=== PATIENT | female | born 1980 | race African-American/Black ===

== ENCOUNTER 2018-10-26 18:50 | Emergency (ER) | payer BC ==
[2018-10-26 19:58] LABS: #Eosinphils 0.2 thou/uL (0.0-0.7); #Lymphocytes 2.3 thou/uL (1.20-3.40); #Monocytes 0.7 thou/uL (0.11-0.59); #Neutrophils 3.9 thou/uL (1.40-6.50); %Basophils 0.6 % (0.0-1.0); %Eosinophils 2.4 % (0.0-10.0); %Lymphocytes 32.6 % (21.0-51.0); %Monocytes 9.4 % (0.0-10.0); Hemoglobin 12.6 g/dL (12.0-16.0); Mean Corpuscular HGB CONC 34.6 g/dL (32.0-36.0); Mean Corpuscular Hemoglobin 27.9 pg (27.0-31.0); Mean Corpuscular Volume 80.4 fL (78.0-98.0); Mean Platelet Volume 7.3 fL (7.4-10.4); Platelet Count 336 thou/uL (130-400); Red Blood Cell (RBC) Count 4.51 mill/uL (4.20-5.40)
[2018-10-26 20:21] LABS: ALT (SGPT) 34 U/L (8-55); AST (SGOT) 24 U/L (5-34); Albumin 3.9 g/dL (3.5-5.0); Alkaline Phosphatase 72 U/L (40-150); Anion Gap 14 mmol/L (10-20); BUN (Urea Nitrogen) 9 mg/dL (7.0-18.7); Bilirubin, Total Less than 0.2 mg/dL (0.2-1.2); Calc. Creatinine Clearance 0 mL/min (70-130); Calcium 9.7 mg/dL (7.8-10.44); Carbon Dioxide 25 mmol/L (22-29); Chloride 103 mmol/L (98-107); Estimated GFR-MDRD Greater than 90; Globulin 4.2 g/dL (2.4-3.5); Glucose 77 mg/dL (70-105); Lipase 71 U/L (8-78); Protein, Total 8.1 g/dL (6.0-8.3); Sodium 138 mmol/L (136-145)
[2018-10-26 22:58] LABS: Bilirubin Negative (Negative); Blood, Urine Negative (Negative); Clarity CLEAR (Clear); Glucose, Urine (Dipstick) Negative (Negative); Leukocyte Trace (Negative); Nitrite Negative (Negative); Protein, Urine (Dipstick) Negative (Neg-Trace); Specific Gravity, Urine 1.015 (1.002-1.036); Urobilinogen 0.2 mg/dL (0.2-1.0)
[2018-10-26 22:59] LABS: Pregnancy Test - Urine (BHCG) Negative (Negative); Pregu Control Background? CLEAR/WHITE (CLR/WHITE); Pregu Control Bar Appear? YES (CONTROL BAR); Specific Gravity 1.015 (1.002-1.036)
[2018-10-26 23:00] LABS: Bacteria/HPF None Seen HPF (None Seen); Hyaline Casts/LPF 0-3 HYALINE CAST LPF (0-3 Hyaline); Pathc Cast-AUWi Flag 0.58 (0-2.49); Squamous Epithelial 0-3 HPF (0-3); WBC/HPF 0-3 HPF (0-3)
--- NOTE | 2018-10-27 09:43 | ULT ---
PRELIMINARY REPORT/[facility]/EMERGENTY AFTER-HOURS PROCEDURE US Pelvis Complete, Transabdominal EXAM DATE/TIME: 10/27/2018 1:35 AM CLINICAL HISTORY: 38 years old, female; Pain and signs and symptoms; Constipation; Slow transit; Pelvic pain and other: RT side TECHNIQUE: Real-time transabdominal pelvic ultrasound with image documentation. Complete exam. COMPARISON: No relevant prior studies available. FINDINGS: Uterus/cervix: Uterus is retroflexed and measures 7.7 x 3.5 x 5.0 cm. Endometrium is homogeneous in e chotexture, measuring 9 mm in thickness at the uterine fundus. Right adnexa: Right ovary measures 3.0 x 3.0 x 2.1 cm. Simple right ovarian cyst measuring 11 x 8 x 7 mm. Normal right ovary vascular flow. Left adnexa: Left ovary not visualized secondary to overlying bowel gas. Free fluid: None. IMPRESSION: No sonographic evidence of acute pelvic abnormality. Thank you for allowing us to participate in the care of your patient. Dictated and Authenticated by: Baron Stuart MD 10/27/2018 2:50 AM Central Time ([place] & [place]) FINAL REPORT PELVIC ULTRASOUND: HISTORY: Right-sided pelvic pain and nausea. FINDINGS: Real-time imaging of the pelvis was obtained both transabdominally as well as with an endovaginal pro be. The uterus measures 3.5 x 5 x 7.7 cm. Endometrium is in the 8-9 mm range. The adnexa are difficult to visualize. The right ovary is fairly well imaged and shows a normal size . There is a small follicle present. The left ovary is never definitively seen. DOPPLER EVALUATION WITH SPECTRAL ANALYSIS: Normal flow is shown to the right ovary. IMPRESSION: 1. Nonvisualization of the left ovary. Unremarkable-appearing uterus and right ovary. No free flui d or other findings. 2. This report is in agreement with the temporary report issued by [facility]. POS: OFF
== END 2018-10-27 02:06 | disposition home or self-care (01) ==
LOC: ERS 18:50
DX: R10.31 Right lower quadrant pain (principal)
CPT/HCPCS: 36415; 76856; 80053; 81003; 81015; 81025; 82728; 83540; 83550; 83690; 85025

== ENCOUNTER 2018-12-03 01:44 | Inpatient (IN) | payer BC ==
[2018-12-03] MEDS ORDERED: Ondansetron PF 4 MG/2 ML Vial ONE ×2 (02:25→13:38)
[2018-12-03] MEDS ORDERED: Morphine 4 MG/ML VIAL ONE (02:25)
[2018-12-03 02:36] LABS: #Eosinphils 0.2 thou/uL (0.0-0.7); #Lymphocytes 1.7 thou/uL (1.20-3.40); #Monocytes 0.5 thou/uL (0.11-0.59); %Basophils 0.2 % (0.0-1.0); %Eosinophils 2.2 % (0.0-10.0); %Lymphocytes 20.5 % (21.0-51.0); %Monocytes 6.4 % (0.0-10.0); %Neutrophils 70.7 % (42.0-75.0); Hemoglobin 10.9 g/dL (12.0-16.0); Mean Corpuscular HGB CONC 32.3 g/dL (32.0-36.0); Mean Corpuscular Hemoglobin 26.4 pg (27.0-31.0); Mean Corpuscular Volume 81.7 fL (78.0-98.0); Mean Platelet Volume 6.9 fL (7.4-10.4); Platelet Count 330 thou/uL (130-400); RBC Distribution Width 12.5 % (11.5-14.5); Red Blood Cell (RBC) Count 4.12 mill/uL (4.20-5.40); White Blood Cell (WBC) Count 8.4 thou/uL (4.8-10.8)
[2018-12-03 02:55] LABS: ALT (SGPT) 78 U/L (8-55); AST (SGOT) 141 U/L (5-34); Albumin 3.6 g/dL (3.5-5.0); Alkaline Phosphatase 100 U/L (40-150); Anion Gap 14 mmol/L (10-20); BUN (Urea Nitrogen) 10 mg/dL (7.0-18.7); Bilirubin, Total 0.4 mg/dL (0.2-1.2); Calc. Creatinine Clearance 0 mL/min (70-130); Calcium 9.4 mg/dL (7.8-10.44); Carbon Dioxide 23 mmol/L (22-29); Chloride 104 mmol/L (98-107); Estimated GFR-MDRD Greater than 90; Globulin 3.8 g/dL (2.4-3.5); Glucose 158 mg/dL (70-105); Lipase 76 U/L (8-78); Potassium 3.9 mmol/L (3.5-5.1); Protein, Total 7.4 g/dL (6.0-8.3); Sodium 137 mmol/L (136-145)
[2018-12-03 03:48] LABS: Bilirubin Negative (Negative); Blood, Urine Negative (Negative); Clarity CLEAR (Clear); Glucose, Urine (Dipstick) Negative (Negative); Leukocyte Negative (Negative); Nitrite Negative (Negative); Protein, Urine (Dipstick) Negative (Neg-Trace); Specific Gravity, Urine 1.019 (1.002-1.036); pH, Urine 7.5 (5.0-9.0)
[2018-12-03 03:52] LABS: Pregnancy Test - Urine (BHCG) Negative (Negative); Pregu Control Background? CLEAR/WHITE (CLR/WHITE); Pregu Control Bar Appear? YES (CONTROL BAR); Specific Gravity 1.019 (1.002-1.036)
[2018-12-03] MEDS ORDERED: Ondansetron ODT 4 MG TAB SL PRN (05:40)
[2018-12-03] MEDS ORDERED: Ondansetron PF 4 MG/2 ML Vial IVP PRN (05:40)
[2018-12-03 07:44] VITALS: BMI 33.6
[2018-12-03] MEDS ORDERED: Midazolam HCl 2 mg/2 ml Vial ONE (09:11)
[2018-12-03] MEDS ORDERED: Fentanyl 100 MCG/2 ML VIAL ONE (09:11)
[2018-12-03] MEDS ORDERED: Promethazine HCl 25 MG/ML VIAL ONE (09:12)
[2018-12-03] MEDS ORDERED: Bupivacaine HCl 0.5%/Epinephrine 1:200,000/PF 30 ml Vial ONE (09:26)
--- NOTE | 2018-12-03 09:26 | ULT ---
PRELIMINARY REPORT/[facility]/EMERGENTY AFTER-HOURS PROCEDURE US Abdomen Limited, Right Upper Quadrant EXAM DATE/TIME: 12/03/2018 2:39 AM CLINICAL HISTORY: 38 years old, female; Pain; Other: Ruq pain TECHNIQUE: Real-time ultrasound of the abdomen with image documentation. Examination was focused on the right up per quadrant. COMPARISON: No relevant prior studies available. FINDINGS: Liver: No acute findings. No mass. Gallbladder: Gallstones with acoustic shadowing. Borderline gallbladder wall thickening. Common bile duct: Unremarkable. Pancreas: Visualized pancreas is unremarkable. Right kidney: No acute findings. No mass. No hydronephrosis. IMPRESSION: Cholelithiasis with borderline gallbladder wall thickening; recommend clinical correlation for cholec ystitis. Thank you for allowing us to participate in the care of your patient. Dictated and Authenticated by: Santosh Colindres MD 12/03/2018 3:22 AM Central Time ([place] & [place]) FINAL REPORT RIGHT UPPER QUADRANT ULTRASOUND: HISTORY: Right upper quadrant pain. COMPARISON: None. TECHNIQUE: Utilizing a Multihertz transducer, sonographic imaging of the right upper quadrant is performed in a longitudinal and transverse plane. FINDINGS: This report is in agreement with the preliminary report by [facility]. There is sonographic evidence of cho lelithiasis without definite sonographic evidence of cholecystitis. HIDA scan if clinically warrante d. POS: [facility]
[2018-12-03] MEDS ORDERED: Ketorolac Tromethamine 30 MG/ML VIAL ONE (09:45)
--- NOTE | 2018-12-03 10:21 | HP ---
HISTORY OF PRESENT ILLNESS: Mabel Jimenez is a 38-year-old female, works for [employer]. She has had episodes of bloating, belching, indigestion, interscapular pain, right scapular pain, and shoulder pain for many years. She developed upper abdominal pain, presented to the emergency room, found on ultrasound to have gallstones, normal bile duct caliber. Liver function tests normal. White count 8, hemoglobin 10.9. She was given Levaquin. Admitted overnight because of failure to control her pain. The patient is single, 0, para 0. ALLERGIES: NONE. TOBACCO: None. ALCOHOL: None. MEDICATIONS: Oral contraceptives. PAST SURGICAL AND MEDICAL HISTORY: Noncontributory. REVIEW OF SYSTEMS: Ten-point noncontributory. PHYSICAL EXAMINATION: VITAL SIGNS: Height 5 feet 5 inches, 202 pounds, 33 BMI, 98.2, 82, 16, and 96/66. HEAD, EARS, EYES, NOSE, AND THROAT: Unremarkable. Sclerae nonicteric. LUNGS: Clear to auscultation. CARDIAC: Regular rate and rhythm without murmur or gallop. ABDOMEN: Soft. Tenderness in right upper quadrant and guarding. EXTREMITIES: Unremarkable. SKIN: Nonjaundiced. NEUROLOGICAL: Intact. LYMPHATIC: No lymphadenopathy in neck, axilla, or groin. ASSESSMENT AND PLAN: Cholecystitis, cholelithiasis. She has received Levaquin in the emergency room. We gave her Toradol affirmatively, and we have recommended laparoscopic video cholecystectomy. Risks of infection, bleeding, visceral and biliary injury explained. She consents. We will proceed with laparoscopic cholecystectomy and expect discharge home later today. Job ID: [id number]
[2018-12-03] MEDS ORDERED: Promethazine HCl 25 MG/ML VIAL SLOW IVP PRN (10:51)
[2018-12-03] MEDS ORDERED: Promethazine HCl 25 MG/ML VIAL IM PRN (10:51)
[2018-12-03] MEDS ORDERED: Ondansetron HCl/PF 4 MG/2 ML Vial IVP PRN (10:51)
[2018-12-03] MEDS ORDERED: PACU-Morphine 4MG/ML VIAL SLOW IVP PRN (10:51)
[2018-12-03] MEDS ORDERED: HYDROmorphone 2 MG/ML VIAL SLOW IVP PRN (10:51)
[2018-12-03] MEDS ORDERED: Ibuprofen 600 MG TAB PO PRN (11:23)
[2018-12-03] MEDS ORDERED: traMADol HCl 50 MG TAB PO PRN ×2 (11:23)
[2018-12-03] MEDS ORDERED: Acetaminophen 500 MG TAB PO PRN (11:23)
--- NOTE | 2018-12-03 11:38 | OP ---
DATE OF PROCEDURE: 12/03/2018 PREOPERATIVE DIAGNOSES: 1. Cholecystitis. 2. Cholelithiasis. POSTOPERATIVE DIAGNOSES: 1. Cholecystitis. 2. Cholelithiasis. ANESTHESIA: Local anesthetic, 0.5% Marcaine with epinephrine, 30 mL total volume used. General anesthesia. PROCEDURE PERFORMED: Laparoscopic video cholecystectomy. FINDINGS: Normal liver. DESCRIPTION OF PROCEDURE: The patient was taken to the operating room, where underwent general anesthesia. Abdomen was prepared with ChloraPrep and draped in routine fashion. Local anesthetic was infiltrated in the skin and subcutaneous tissue about each port site. Infraumbilical incision was made. Pneumoperitoneum to 15 mmHg obtained with a Veress needle, replacing with a 5 port. Video laparoscope inserted. Right subxiphoid incision was made and 11 port placed. Right subcostal incision was made in the midclavicular and anterior axillary line and the 5 port placed. Liver appeared to be normal. Fundus of the gallbladder was grasped at the cephalad. Infundibulum was grasped and reflected laterally. Cystic artery and duct dissected free. Critical view obtained. Cystic artery and duct double clipped proximally and divided. Gallbladder dissected free from the liver bed, obtaining good hemostasis prior to division of the final peritoneal attachments. Gallbladder and contents and stones were removed and submitted to Pathology. Good hemostasis ensured. Irrigant and pneumoperitoneum evacuated. All instruments were removed. All skin incisions were approximated with interrupted subdermal 4-0 Monocryl and Balfour glue applied. Job ID: [id number]
[2018-12-03] MEDS ORDERED: Rocuronium Bromide 10 MG/ML (10ML VIAL) ONE (13:38)
[2018-12-03] MEDS ORDERED: PROPOFOL 200 MG/20 ML VIAL ONE (13:38)
[2018-12-03] MEDS ORDERED: Lidocaine 1% PF 5 ML VIAL ONE (13:38)
[2018-12-03] MEDS ORDERED: Glycopyrrolate 0.2 MG/ML 5 ML SYRINGE ONE (13:38)
[2018-12-03] MEDS ORDERED: Dexamethasone 20 MG/5 ML VIAL ONE (13:38)
--- NOTE | 2018-12-03 14:01 | DIS ---
DATE OF ADMISSION: 12/03/2018 DATE OF DISCHARGE: 12/03/2018 PREOPERATIVE DIAGNOSES: Cholecystitis, cholelithiasis. PROCEDURES: Ultrasound of the gallbladder in ER, laparoscopic video cholecystectomy. HISTORY: A 38-year-old female with a several-year history of biliary symptoms, became worse, presented to the emergency room. Ultrasound revealed gallstones. Bile duct caliber normal. Liver function tests normal. Hospitalized overnight due to the late hour presentation, underwent laparoscopic video cholecystectomy, and discharged home with followup in Dr. Richardson's office in 2 to 3 weeks. DIET AND ACTIVITY: As tolerated. DISCHARGE MEDICATIONS: Home with Ultram, #25, if needed. Otherwise, Tylenol, Advil [id number]. Bathe and shower whenever. No lifting restrictions. Job ID: [id number]
[2018-12-03 14:44] VITALS: BP 97/66; TEMP 98.1
[2018-12-04] MEDS ORDERED: ETHINYL ESTRADIOL PO SCH (09:00)
[2018-12-04] MEDS ORDERED: DROSPIRENONE PO SCH (09:00)
== END 2018-12-03 14:40 | disposition home or self-care (01) | DRG 419 ==
LOC: ERS 01:44 → SURG A 05:06
PROVIDERS: ADMIT Specialist; ATTEND Specialist
PROC: 0FT44ZZ Resection of Gallbladder, Percutaneous Endoscopic Approach (ICD-10-PCS; principal; 2018-12-03)
DX: K80.10 Calculus of gallbladder with chronic cholecystitis without obstruction (principal)
CPT/HCPCS: 36415; 76705; 80053; 81003; 81025; 83690; 84484; 85025; 88304; 96361; 96365; 96375; J0131; J0670; J1100; J1885; J1956; J2001; J2250; J2270; J2405; J2550; J2704; J3010

== ENCOUNTER 2020-02-07 15:59 | Emergency (ER) | payer BC ==
[~2020-02-07 15:59] MED LIST: Iopamidol-370 76% 500 ML 1 ML ONE
[2020-02-07] MEDS ORDERED: Morphine 4 MG/ML VIAL ONE ×2 (16:54→17:58)
[2020-02-07] MEDS ORDERED: Ketorolac Tromethamine 30 MG/ML VIAL ONE (16:55)
[2020-02-07] MEDS ORDERED: Ondansetron PF 4 MG/2 ML Vial ONE (16:55)
[2020-02-07 17:25] LABS: #Eosinphils 0.2 thou/uL (0.0-0.7); #Lymphocytes 2.4 thou/uL (1.20-3.40); #Monocytes 0.6 thou/uL (0.11-0.59); #Neutrophils 7.1 thou/uL (1.40-6.50); %Basophils 0.4 % (0.0-1.0); %Eosinophils 1.5 % (0.0-10.0); %Lymphocytes 23.1 % (21.0-51.0); %Monocytes 5.5 % (0.0-10.0); %Neutrophils 69.5 % (42.0-75.0); Mean Corpuscular HGB CONC 33.7 g/dL (32.0-36.0); Mean Corpuscular Hemoglobin 27.7 pg (27.0-31.0); Mean Corpuscular Volume 82.2 fL (78.0-98.0); Mean Platelet Volume 7.1 fL (7.4-10.4); Platelet Count 368 thou/uL (130-400); RBC Distribution Width 13.3 % (11.5-14.5); Red Blood Cell (RBC) Count 4.69 mill/uL (4.20-5.40); White Blood Cell (WBC) Count 10.2 thou/uL (4.8-10.8)
[2020-02-07 17:49] LABS: ALT (SGPT) 12 U/L (8-55); AST (SGOT) 13 U/L (5-34); Albumin 4.2 g/dL (3.5-5.0); Alkaline Phosphatase 95 U/L (40-110); Anion Gap 16 mmol/L (10-20); BUN (Urea Nitrogen) 10 mg/dL (7.0-18.7); Bilirubin, Total Less than 0.2 mg/dL (0.2-1.2); Calc. Creatinine Clearance 0 mL/min (70-130); Calcium 9.3 mg/dL (7.8-10.44); Carbon Dioxide 20 mmol/L (22-29); Chloride 105 mmol/L (98-107); Estimated GFR-MDRD Greater than 90; Globulin 3.9 g/dL (2.4-3.5); Glucose 130 mg/dL (70-105); Lipase 47 U/L (8-78); Potassium 3.5 mmol/L (3.5-5.1); Protein, Total 8.1 g/dL (6.0-8.3); Sodium 137 mmol/L (136-145)
[2020-02-07 17:59] LABS: BHCG - Serum Negative (NEGATIVE); Pregs Control Background? CLEAR/WHITE (CLR/WHITE); Pregs Control Bar Appear? YES (CONTROL BAR)
[2020-02-07 18:02] LABS: Bacteria/HPF None Seen HPF (None Seen); Bilirubin Negative (Negative); Blood, Urine 2+ (Negative); Clarity Clear (Clear); Glucose, Urine (Dipstick) Normal (Negative); Leukocyte Negative Leu/uL (Negative); Nitrite Negative (Negative); Protein, Urine (Dipstick) 10 mg/dL (Neg-Trace); RBC/HPF Greater than 50 HPF (0-3); Squamous Epithelial 0-3 HPF (0-3); Urobilinogen Normal mg/dL (Less than 2)
--- NOTE | 2020-02-07 18:55 | CT ---
CT ABDOMEN AND PELVIS WITH IV CONTRAST: 02/07/20 INDICATIONS; Left lower quadrant pain. No comparison. FINDINGS: The lung bases are clear. Liver, spleen, and pancreas unremarkable. Post cholecystectomy changes are noted. Adrenal glands are normal. Kidneys unremarkable. Urinary bladder is contracted and not well evaluated. Small bowel loops are normal caliber. The appendix is not identified. Colon is unremarkable. No evide nce of adenopathy. Images through the pelvis show unremarkable uterus and adnexa. IMPRESSION: No acute process identified. POS: [facility]
== END 2020-02-07 23:11 | disposition home or self-care (01) ==
LOC: ERS 15:59
DX: M54.42 Lumbago with sciatica, left side (principal); R10.31 Right lower quadrant pain; Z79.899 Other long term (current) drug therapy; Z79.84 Long term (current) use of oral hypoglycemic drugs
CPT/HCPCS: 74177; 80053; 81003; 81015; 83690; 84703; 85025; 96361; 96374; 96375; J1885; J2270; J2405; Q9967

== ENCOUNTER 2021-03-12 08:11 | Outpatient (CLI) | payer BC ==
[2021-03-12 08:51] LABS: Estimated GFR-MDRD - POC Greater than 90
[2021-03-12] MEDS ORDERED: Magnevist 469MG/ML 20 ML VIAL ONE (09:08)
== END 2021-03-12 08:12 | disposition home or self-care (01) ==
LOC: BICMRI 08:11
PROVIDERS: ATTEND Family Medicine
DX: H53.9 Unspecified visual disturbance (principal); R51.9 Headache, unspecified
CPT/HCPCS: 70553; 82565; A9579

== ENCOUNTER 2021-09-08 13:15 | Outpatient (CLI) | payer BC | END 2021-09-08 13:16 | disposition home or self-care (01) | LOC: BICCT 13:15 | PROVIDERS: ATTEND Family Medicine | DX: R10.9 Unspecified abdominal pain (principal) | CPT/HCPCS: 74178 ==

== ENCOUNTER 2021-11-06 14:39 | Outpatient (CLI) | payer BC | END 2021-11-06 14:40 | disposition home or self-care (01) | LOC: SCSRAD 14:39 | PROVIDERS: ATTEND Family Medicine | DX: R06.02 Shortness of breath (principal) | CPT/HCPCS: 71046 ==

== ENCOUNTER 2021-11-08 18:52 | Inpatient (IN) | payer BC ==
[~2021-11-08 18:52] MED LIST changes: +Iopamidol 370 76% 100 ML VIAL ONE; -Iopamidol-370 76% 500 ML 1 ML ONE
[2021-11-08 19:44] LABS: #Lymphocytes 1.3 thou/uL (1.20-3.40); #Monocytes 0.6 thou/uL (0.11-0.59); #Neutrophils 5.3 thou/uL (1.40-6.50); %Eosinophils 0.1 % (0.0-10.0); %Lymphocytes 18.3 % (21.0-51.0); %Monocytes 8.2 % (0.0-10.0); %Neutrophils 73.3 % (42.0-75.0); Hemoglobin 10.6 g/dL (12.0-16.0); Mean Corpuscular HGB CONC 31.9 g/dL (32.0-36.0); Mean Corpuscular Hemoglobin 23.9 pg (27.0-31.0); Mean Corpuscular Volume 75.1 fL (78.0-98.0); Mean Platelet Volume 6.9 fL (7.4-10.4); Platelet Count 309 thou/uL (130-400); RBC Distribution Width 15.1 % (11.5-14.5); Red Blood Cell (RBC) Count 4.43 mill/uL (4.20-5.40); White Blood Cell (WBC) Count 7.3 thou/uL (4.8-10.8)
[2021-11-08 20:04] LABS: ALT (SGPT) 26 U/L (8-55); AST (SGOT) 31 U/L (5-34); Albumin 3.4 g/dL (3.5-5.0); Alkaline Phosphatase 63 U/L (40-110); Anion Gap 17 mmol/L (10-20); BUN (Urea Nitrogen) 4 mg/dL (7.0-18.7); Bilirubin, Total 0.3 mg/dL (0.2-1.2); Calc. Creatinine Clearance 0 mL/min (70-130); Carbon Dioxide 22 mmol/L (22-29); Globulin 3.5 g/dL (2.4-3.5); Glucose 170 mg/dL (70-105); Potassium 3.4 mmol/L (3.5-5.1); Protein, Total 6.9 g/dL (6.0-8.3)
[2021-11-08 20:09] LABS: Chloride 100 mmol/L (98-107); Sodium 136 mmol/L (136-145)
[2021-11-08] MEDS ORDERED: Ondansetron PF 4 MG/2 ML Vial ONE (20:57)
[2021-11-08] MEDS ORDERED: Acetaminophen 500 MG TAB ONE (20:57)
[2021-11-08] MEDS ORDERED: Dexamethasone 10 MG/ML VIAL ONE (20:57)
[2021-11-08] MEDS ORDERED: Enoxaparin Sodium 100 MG/ML SYRINGE ONE (22:37)
[2021-11-08] MEDS ORDERED: Sodium Chloride 0.9% 1,000 ML IV SCH (22:45)
[2021-11-08 23:00] LABS: Lactic Acid 1.2 mmol/L (0.5-2.2)
[2021-11-09] MEDS ORDERED: Electrolyte Replacement Protocol 1 EACH FS PRN (00:30)
[2021-11-09] MEDS: Potassium Chloride 20 MEQ in Premix Bag 1 BAG IVPB SCH ×2 (00:47→03:16)
[2021-11-09 01:07] VITALS: BMI 39.4
[2021-11-09] MEDS ORDERED: Ondansetron PF 4 MG/2 ML Vial IVP PRN (04:49)
[2021-11-09] MEDS ORDERED: Acetaminophen 650 MG Suppository PR PRN (04:49)
[2021-11-09] MEDS ORDERED: Ondansetron ODT 4 MG TAB PO PRN (04:49)
[2021-11-09] MEDS ORDERED: Enoxaparin Sodium 40 MG/0.4 ML SYRINGE SC SCH (05:00)
[2021-11-09 05:39] LABS: Hemoglobin 10.4 g/dL (12.0-16.0); Mean Corpuscular Hemoglobin 23.9 pg (27.0-31.0); Mean Corpuscular Volume 74.5 fL (78.0-98.0); Mean Platelet Volume 7.1 fL (7.4-10.4); Platelet Count 298 thou/uL (130-400); RBC Distribution Width 15.1 % (11.5-14.5); Red Blood Cell (RBC) Count 4.35 mill/uL (4.20-5.40); White Blood Cell (WBC) Count 4.8 thou/uL (4.8-10.8)
[2021-11-09 05:51] LABS: Anion Gap 12 mmol/L (10-20); BUN (Urea Nitrogen) 5 mg/dL (7.0-18.7); Calc. Creatinine Clearance 177 mL/min (70-130); Calcium 8.1 mg/dL (7.8-10.44); Carbon Dioxide 22 mmol/L (22-29); Chloride 106 mmol/L (98-107); Glucose 252 mg/dL (70-105); Potassium 4.2 mmol/L (3.5-5.1); Sodium 136 mmol/L (136-145)
[2021-11-09] MEDS ORDERED: Dextrose 50% Abboject 50 ML SYRINGE SLOW IVP PRN (05:52)
[2021-11-09] MEDS ORDERED: Dextrose 5% in Water 1,000 ML IV PRN (05:52)
[2021-11-09 06:20] LABS: #Lymphocytes 0.7 thou/uL (1.20-3.40); #Monocytes 0.2 thou/uL (0.11-0.59); #Neutrophils 3.8 thou/uL (1.40-6.50); %Eosinophils 0.1 % (0.0-10.0); %Lymphocytes 15.5 % (21.0-51.0); %Monocytes 4.4 % (0.0-10.0)
[2021-11-09 06:21] LABS: MDiff Complete? YES; Microcytosis SLIGHT = 6-15 cells (100X) (0-5/hpf)
[2021-11-09] MEDS: Albuterol 200 PUFF (6.7GM INHALER) INH SCH ×3 (06:44→20:27)
[2021-11-09] MEDS: HumaLOG 300 UNITS/3 ML VIAL SC PRN ×3 (06:45→20:28)
[2021-11-09] MEDS: Ascorbic Acid 500 mg Chewable Tablet PO SCH (07:45)
[2021-11-09] MEDS: Cholecalciferol (Vitamin D3) 400 UNITS TAB PO SCH (07:46)
[2021-11-09] MEDS: Zinc Sulfate 220 MG CAP PO SCH (07:46)
[2021-11-09] MEDS: Dexamethasone 10 MG/ML VIAL SLOW IVP SCH (07:46)
[2021-11-09] MEDS ORDERED: Iopamidol 370 76% 100 ML VIAL ONE (09:31)
[2021-11-09] MEDS ORDERED: Pharmacy to Dose REMDESIVIR IVPB PRN (15:52)
[2021-11-09] MEDS: guaiFENesin/Codeine 200 mg/20 mg 10 ml Cup PO PRN (20:27)
[2021-11-09] MEDS: Enoxaparin Sodium 40 MG/0.4 ML SYRINGE SC SCH (20:27)
[2021-11-09] MEDS: Acetaminophen 325 MG TAB PO PRN (23:35)
[2021-11-09] MEDS ORDERED: Nitroglycerin 0.4 MG TAB (25 Tab Bottle) SL PRN (23:39)
[2021-11-09] MEDS ORDERED: Nitroglycerin 0.4 MG TAB (25 Tab Bottle) ONE (23:44)
[2021-11-10 00:21] LABS: Troponin I Less than 0.010 ng/mL (< 0.028)
[2021-11-10 01:04] LABS: Magnesium 2.1 mg/dL (1.6-2.6)
[2021-11-10] MEDS: Albuterol 200 PUFF (6.7GM INHALER) INH SCH ×4 (01:17→18:10)
[2021-11-10 05:29] LABS: #Basophils 0.3 thou/uL (0.0-0.2); #Monocytes 0.6 thou/uL (0.11-0.59); #Neutrophils 9.5 thou/uL (1.40-6.50); %Basophils 2.5 % (0.0-1.0); %Eosinophils 0.1 % (0.0-10.0); %Lymphocytes 8.4 % (21.0-51.0); %Monocytes 5.4 % (0.0-10.0); %Neutrophils 83.5 % (42.0-75.0); Hemoglobin 9.6 g/dL (12.0-16.0); Mean Corpuscular HGB CONC 32.4 g/dL (32.0-36.0); Mean Corpuscular Hemoglobin 24.3 pg (27.0-31.0); Mean Corpuscular Volume 74.9 fL (78.0-98.0); Platelet Count 354 thou/uL (130-400); Red Blood Cell (RBC) Count 3.97 mill/uL (4.20-5.40); White Blood Cell (WBC) Count 11.4 thou/uL (4.8-10.8)
[2021-11-10 05:53] LABS: Anion Gap 15 mmol/L (10-20); BUN (Urea Nitrogen) 7 mg/dL (7.0-18.7); Calc. Creatinine Clearance 185 mL/min (70-130); Calcium 8.4 mg/dL (7.8-10.44); Carbon Dioxide 22 mmol/L (22-29); Chloride 107 mmol/L (98-107); Glucose 217 mg/dL (70-105); Potassium 3.8 mmol/L (3.5-5.1); Sodium 140 mmol/L (136-145)
[2021-11-10] MEDS: Cholecalciferol (Vitamin D3) 400 UNITS TAB PO SCH (09:27)
[2021-11-10] MEDS: Ascorbic Acid 500 mg Chewable Tablet PO SCH (09:27)
[2021-11-10] MEDS: Zinc Sulfate 220 MG CAP PO SCH (09:27)
[2021-11-10] MEDS: Enoxaparin Sodium 40 MG/0.4 ML SYRINGE SC SCH ×2 (09:27→20:49)
[2021-11-10] MEDS: Dexamethasone 10 MG/ML VIAL SLOW IVP SCH (09:27)
[2021-11-10] MEDS: guaiFENesin/Codeine 200 mg/20 mg 10 ml Cup PO PRN ×2 (09:36→20:49)
[2021-11-10] MEDS: HumaLOG 300 UNITS/3 ML VIAL SC PRN ×3 (12:39→20:49)
[2021-11-10] MEDS: Acetaminophen 325 MG TAB PO PRN ×2 (13:32→20:49)
[2021-11-10] MEDS ORDERED: Morphine 4 MG/ML VIAL SLOW IVP PRN (16:22)
[2021-11-11] MEDS: Albuterol 200 PUFF (6.7GM INHALER) INH SCH ×3 (01:45→13:33)
[2021-11-11 05:36] LABS: #Basophils 0.1 thou/uL (0.0-0.2); #Lymphocytes 1.2 thou/uL (1.20-3.40); #Monocytes 0.7 thou/uL (0.11-0.59); #Neutrophils 10.4 thou/uL (1.40-6.50); %Basophils 0.6 % (0.0-1.0); %Lymphocytes 9.9 % (21.0-51.0); %Monocytes 5.8 % (0.0-10.0); %Neutrophils 83.6 % (42.0-75.0); Hemoglobin 9.5 g/dL (12.0-16.0); Mean Corpuscular HGB CONC 31.9 g/dL (32.0-36.0); Mean Corpuscular Hemoglobin 23.9 pg (27.0-31.0); Mean Corpuscular Volume 74.9 fL (78.0-98.0); Mean Platelet Volume 6.7 fL (7.4-10.4); Platelet Count 430 thou/uL (130-400); RBC Distribution Width 14.9 % (11.5-14.5); Red Blood Cell (RBC) Count 3.98 mill/uL (4.20-5.40); White Blood Cell (WBC) Count 12.5 thou/uL (4.8-10.8)
[2021-11-11 05:55] LABS: Anion Gap 14 mmol/L (10-20); BUN (Urea Nitrogen) 9 mg/dL (7.0-18.7); Calc. Creatinine Clearance 197 mL/min (70-130); Calcium 8.3 mg/dL (7.8-10.44); Carbon Dioxide 24 mmol/L (22-29); Chloride 104 mmol/L (98-107); Glucose 170 mg/dL (70-105); Sodium 138 mmol/L (136-145)
[2021-11-11] MEDS: HumaLOG 300 UNITS/3 ML VIAL SC PRN (06:24)
[2021-11-11] MEDS ORDERED: Lactated Ringer's 500 ML IV SCH (08:15)
[2021-11-11] MEDS: Dexamethasone 10 MG/ML VIAL SLOW IVP SCH (09:33)
[2021-11-11] MEDS: Zinc Sulfate 220 MG CAP PO SCH (09:33)
[2021-11-11] MEDS: Cholecalciferol (Vitamin D3) 400 UNITS TAB PO SCH (09:33)
[2021-11-11] MEDS: Ascorbic Acid 500 mg Chewable Tablet PO SCH (09:33)
[2021-11-11] MEDS: Enoxaparin Sodium 40 MG/0.4 ML SYRINGE SC SCH (09:33)
[2021-11-11] MEDS: Lactated Ringer's 500 ML IV SCH ×3 (09:36→14:53)
[2021-11-11 13:00] VITALS: BP 120/68; TEMP 99.3
[2021-11-11] MEDS: guaiFENesin/Codeine 200 mg/20 mg 10 ml Cup PO PRN (15:19)
== END 2021-11-11 17:15 | disposition home or self-care (01) | DRG 871 ==
LOC: ERS 18:52 → 2SW 22:31 → OBSVTOIN 11-10 10:19
PROVIDERS: ADMIT Student in an Organized Health Care Education/Training Program; ATTEND Hospitalist
PROC: 8E0ZXY6 Isolation (ICD-10-PCS; principal; 2021-11-10)
DX: A41.89 Other specified sepsis (principal); U07.1 COVID-19; J12.82 Pneumonia due to coronavirus disease 2019; J96.01 Acute respiratory failure with hypoxia; E11.9 Type 2 diabetes mellitus without complications; K21.9 Gastro-esophageal reflux disease without esophagitis; E86.0 Dehydration; E66.9 Obesity, unspecified; I10 Essential (primary) hypertension; Z88.8 Allergy status to other drugs, medicaments and biological substances; Z79.891 Long term (current) use of opiate analgesic; Z79.899 Other long term (current) drug therapy; Z79.84 Long term (current) use of oral hypoglycemic drugs; Z90.49 Acquired absence of other specified parts of digestive tract; Z68.39 Body mass index [BMI] 39.0-39.9, adult
CPT/HCPCS: 36415; 36416; 71045; 71275; 80048; 80053; 83605; 83735; 84484; 85025; 85379; 86140; 87040; 93005; 93010; 93970; 96365; 96366; 96372; 96374; 96375; 96376; G0378; J1100; J1650; J1815; J2270; J2405; J3480; J7050; J7120; Q9967

== ENCOUNTER 2023-11-02 14:46 | Outpatient (CLI) | payer BC | END 2023-11-02 14:47 | disposition home or self-care (01) | LOC: BICRAD 14:46 | PROVIDERS: ATTEND Nurse Practitioner Family | DX: J34.89 Other specified disorders of nose and nasal sinuses (principal) | CPT/HCPCS: 70220 ==

== ENCOUNTER 2024-09-29 12:43 | Outpatient (CLI) | payer BC | END 2024-09-29 12:44 | disposition home or self-care (01) | LOC: RAD 12:43 | PROVIDERS: ATTEND Family Medicine | DX: M54.6 Pain in thoracic spine (principal) | CPT/HCPCS: 72072 ==

== ENCOUNTER 2025-06-18 12:32 | Outpatient (CLI) | payer BC | END 2025-06-18 12:33 | disposition home or self-care (01) | LOC: RAD 12:32 | PROVIDERS: ATTEND Family Medicine | DX: M25.512 Pain in left shoulder (principal); M54.2 Cervicalgia; M89.8X1 Other specified disorders of bone, shoulder; M77.8 Other enthesopathies, not elsewhere classified | CPT/HCPCS: 72040; 72070 ==